=== PATIENT | female | born 1945 | race Caucasian/White ===

== ENCOUNTER 2017-11-19 08:54 | Inpatient (IN) | payer OTHER ==
[~2017-11-19] VITALS: Ht 157.5 cm; Wt 77.3 kg
[2017-11-19 09:53] LABS: BASOPHIL (%) 0.6 % (0-1); EOSINOPHIL (%) 1.5 % (0-5); EOSINOPHIL COUNT 0.1 K/uL (0-0.3); HEMATOCRIT 39.4 % (36.0-46.0); HEMOGLOBIN 13.6 G/DL (11.9-15.5); IMMATURE GRANULOCYTE (%) 0.3 % (0.0-0.7); LYMPHOCYTE (%) 12.7 % (15-42); LYMPHOCYTE COUNT 0.9 K/uL (1.0-2.8); MCH 33.3 PG (29.0-34.0); MCHC 34.5 G/DL (30.0-36.0); MCV 96.6 FL (83-99); MONOCYTE (%) 9.2 % (3-12); MONOCYTE COUNT 0.7 K/uL (0-0.8); NEUTROPHIL (%) 75.7 % (45-76); NEUTROPHIL COUNT 5.4 K/uL (1.8-6.4); PLATELET COUNT 331 K/uL (156-360); RBC DIS.WIDTH-CV 13.2 % (11.8-14.6); RBC DIS.WIDTH-SD 46.8 % (39-53); RED BLOOD COUNT 4.08 M/uL (3.80-5.20); WHITE BLOOD COUNT 7.2 K/uL (4.1-10.2)
[2017-11-19 10:05] LABS: CHLORIDE 98 mEq/L (99-109); SODIUM 131 mEq/L (136-147)
[2017-11-19 10:06] LABS: GLUCOSE 128 mg/dL (70-99)
[2017-11-19 10:07] LABS: PTT 25.5 SEC (25-37)
[2017-11-19 10:10] LABS: GFR ESTIMATE (CALCULATED) 58 mL/min/
[2017-11-19 10:11] LABS: UREA NITROGEN (BUN) 6 mg/dL (9-23)
[2017-11-19 10:13] LABS: CREATINE KINASE 20 IU/L (1-294); TOTAL CK 20 IU/L (1-294)
[2017-11-19 10:19] LABS: CK-MB 0.6 ng/mL (0.0-4.9)
[2017-11-19] MEDS ORDERED: LEVOTHYROXINE25 MCG PO (10:59)
[2017-11-19] MEDS ORDERED: AMLODIPINE BESYL5 MG PO (11:00)
[2017-11-19] MEDS ORDERED: VENLAFAXINE HC150 M1 PO (11:00)
[2017-11-19] MEDS ORDERED: LOSARTAN POTASS50 MG PO (11:01)
[2017-11-19] MEDS ORDERED: PRAVASTATIN SOD80 MG PO (11:01)
[2017-11-19] MEDS ORDERED: METOPROLOL SUCC25 MG PO (11:01)
[2017-11-19] MEDS ORDERED: VITAMIN D2000 UNI1 PO (11:02)
[2017-11-19] MEDS ORDERED: LO-DOSE ASPIRIN81 M2 PO (11:03)
[2017-11-19 13:42] VITALS: BP 130/89
== END 2017-11-19 17:55 | disposition short-term general hospital (02) | DRG 300 ==
LOC: EME 08:54 → EDOF 11:23 → ENRESERV 11:27 → 2EAST 13:27
PROVIDERS: Emergency Medicine
DX: I82.422 Acute embolism and thrombosis of left iliac vein (principal); E87.2 Acidosis; E87.1 Hypo-osmolality and hyponatremia; I25.10 Atherosclerotic heart disease of native coronary artery without angina pectoris; E03.9 Hypothyroidism, unspecified; I10 Essential (primary) hypertension; E78.5 Hyperlipidemia, unspecified; K21.9 Gastro-esophageal reflux disease without esophagitis; F41.9 Anxiety disorder, unspecified; F32.9 Major depressive disorder, single episode, unspecified; Z95.5 Presence of coronary angioplasty implant and graft; Z79.82 Long term (current) use of aspirin; Z87.891 Personal history of nicotine dependence
CPT/HCPCS: 80048; 82550; 82553; 85025; 85610; 85730; 93971; 99281; 99285